=== PATIENT | female | born 1975 | race Caucasian/White ===

== ENCOUNTER 2025-08-25 08:58 | Day surgery (SDC) | payer BC, OTHER ==
[2025-08-25] VITALS (41 sets, daily range): BP systolic 80–122; BP diastolic 47–107
[~2025-08-25] VITALS: Ht 167.6 cm; Wt 68.7 kg
[~2025-08-25 08:58] MED LIST: PROM25 PO; RANI150 PO
[2025-08-25] MEDS ORDERED: PANT40 PO (09:21)
[2025-08-25] MEDS ORDERED: SEMAGLUTID0.25 MG/0. SQ (09:22)
[2025-08-25] MEDS ORDERED: ESCI20 PO (09:22)
--- NOTE | 2025-08-25 09:39 | NUR ---
History, Chart, Medications and Allergies reviewed before start of procedure.Pre-Op teaching done. Pt verbalizes understanding. Patient confirms NPO status and agrees with scheduled surgery. Patient states colon prep results clear.
--- NOTE | 2025-08-25 10:00 | NUR ---
08/25/25 Nell Ortiz CONFIRMED AND REVIEWED H&P, MEDCICATIONS, ALLERGIES, MEDICAL HISTORY, RESPIRATORY HISTORY, VITAL SIGNS, 3-LEAD EKG, CONSENTS, AND PHYSICIAN ORDERS. PATIENT CONFIRMS NPO STATUS AND AGREES WITH SCHEDULED PROCEDURE. MONITOR INTACT WITH CONTINUOUS PULSE OXIMETRY, CAPNOGRAPHY, 3-LEAD EKG, INTERMITTENT BP. SUPPLEMENTAL O2 TO BE TITRATED THROUGHOUT PROCEDURE TO MAINTAIN O2 SATURATION ABOVE 90%. PATIENT DETERMINED TO BE ASA APPROPRIATE FOR PROPOFOL SEDATION PRIOR TO START OF PROCEDURE BY DR. SCOTT.
--- NOTE | 2025-08-25 11:31 | NUR ---
Discharge instructions reviewed with patient. Patient verbalizes understanding. Copy given to patient to take home. Patient States Post-Procedure ride home has been arranged. Discharged via wheelchair to private car for ride home.
== END 2025-08-25 11:32 | disposition home or self-care (01) ==
LOC: ORSCMMR 08:58 → ORD 10:15 → ORSCMMR 10:15
PROVIDERS: Surgery
PROC: 0DB48ZX Excision of Esophagogastric Junction, Via Natural or Artificial Opening Endoscopic, Diagnostic (ICD-10-PCS; principal; 2025-08-25 10:15)
PROC: 0DJD8ZZ Inspection of Lower Intestinal Tract, Via Natural or Artificial Opening Endoscopic (ICD-10-PCS; principal; 2025-08-25 10:15)
PROC: 0DB78ZX Excision of Stomach, Pylorus, Via Natural or Artificial Opening Endoscopic, Diagnostic (ICD-10-PCS; principal; 2025-08-25 10:15)
DX: K62.5 Hemorrhage of anus and rectum (principal); K21.9 Gastro-esophageal reflux disease without esophagitis; K29.70 Gastritis, unspecified, without bleeding; K64.8 Other hemorrhoids; D50.9 Iron deficiency anemia, unspecified; N28.9 Disorder of kidney and ureter, unspecified; Z79.899 Other long term (current) drug therapy; Z79.85 Long-term (current) use of injectable non-insulin antidiabetic drugs; F17.210 Nicotine dependence, cigarettes, uncomplicated
CPT/HCPCS: 88305; 88342; J2704; J7120